=== PATIENT | male | born 1945 | race Caucasian/White ===

== ENCOUNTER 2018-04-12 12:01 | Emergency (ER) | payer MEDICARE, MEDICAID ==
[~2018-04-12] VITALS: Ht 182.9 cm; Wt 89.0 kg
[~2018-04-12 12:01] MED LIST: ALDACTONE25 MG PO; ALFUZOSIN HCL E10 MG PO; AMIODARONE200 MG PO; AMLODIPINE10 MG OR; ASPIRIN EC81 MG PO; BENAZEPRIL40 M1 OR; CLONAZEP ODT1 MG PO; CLONAZEPAM1 MG PO; CORDARONE/200 MG/TAB PO; CYANOCOBALAM1000 MCG IM; CYMBALTA60 MG PO; DEXILANT60 MG PO; DIGOXIN0.125 MG PO; DIOVAN160 MG PO; FERRAPLUS 90 PO; GLIMEPIRIDE2 MG PO; IBANDRONATE SO150 MG PO; JANUVIA100 MG OR; KLOR-CON-2525 MEQ PO; LASIX 40 MG TAB40 MG PO; LEVEMIR FLEXPEN SC; LEVEMIR SC; LORTAB 10 OR; LOVASTATIN40 M1 OR; LYRICA50 MG OR; MAGNESIUM-OX400 MG PO; METFORMIN1000 MG OR; METOPROLOL PO; METOPROLOL TART50 MG PO; MILLIPRED5 MG PO; NYSTATIN100000 M1 PO; OXYCODONE30 MG PO; OXYCONTIN40 MG PO; OXYCONTIN60 MG PO; PHENERGAN PO; PHENERGAN12.5 MG/TA PO; PRAVASTATIN SOD40 MG PO; PREDNISONE10 MG OR; SEROQUEL100 MG PO; TESTOST CYP100 MG/ML IM; TRAZODONE100 MG OR; TRAZODONE50 MG PO; TYLENOL325 MG PO; UROXATRAL10 MG PO; XARELTO10 MG PO; XARELTO20 MG PO; [UNRECOGNIZED DRUG - CODE] IM
[2018-04-12 14:29] VITALS: BP 138/70
[2018-04-12] MEDS ORDERED: OMNI-PAC300 MG PO (14:30)
[2018-04-12] MEDS ORDERED: BACTRIM DS1 TAB PO (14:30)
== END 2018-04-12 14:40 | disposition home or self-care (01) ==
LOC: ED 12:01
PROC: 0H9FXZZ Drainage of Right Hand Skin, External Approach (ICD-10-PCS; principal; 2018-04-12)
DX: L02.511 Cutaneous abscess of right hand (principal); L03.011 Cellulitis of right finger; I10 Essential (primary) hypertension

== ENCOUNTER 2018-07-22 19:53 | Emergency (ER) | payer MEDICARE, MEDICAID ==
[~2018-07-22] VITALS: Ht 182.9 cm; Wt 81.8 kg
[~2018-07-22 19:53] MED LIST changes: +BACTRIM DS1 TAB PO; +OMNI-PAC300 MG PO
[2018-07-22] MEDS ORDERED: LEVEMIR FL100 UNIT/M SC (20:31)
[2018-07-22] MEDS ORDERED: OMEPRAZOLE20 M2 PO (20:31)
[2018-07-22] MEDS ORDERED: TAMSULOSIN HCL0.4 MG PO (20:32)
[2018-07-22] MEDS ORDERED: CIPROFLOXACIN250 MG PO (20:34)
[2018-07-22 20:35] LABS: HEMATOCRIT 38.7 % (39.0-50.0); HEMOGLOBIN 12.3 g/dl (14.0-18.0); IMMATURE GRANULOCYTES 0.6 % (0.0-5.0); MEAN CELL VOLUME 93.7 fL CALC (80.0-100.0); MEAN CORPUSCULAR HGB 29.8 pG CALC (26.0-32.0); MEAN CORPUSCULAR HGB CONC 31.8 g/L CALC (32.0-36.0); NEUT# 9.05 thou/uL (1.82-7.42); RED BLOOD COUNT 4.13 mill/uL (4.70-6.10); RED CELL DISTRI WIDTH 18.1 % (11.5-15.5)
[2018-07-22] MEDS ORDERED: VITAMIN C500 M6 PO (20:36)
[2018-07-22] MEDS ORDERED: ALFUZOSIN HCL E10 MG PO (20:36)
[2018-07-22 20:37] LABS: URINE BILIRUBIN - DIPSTICK NEGATIVE (NEGATIVE); URINE BLOOD DIPSTICK NEGATIVE (NEGATIVE); URINE COLOR YELLOW; URINE GLUCOSE - DIPSTICK NEGATIVE (NEGATIVE); URINE KETONE NEGATIVE (NEGATIVE); URINE LEUK ESTERASE NEGATIVE (NEGATIVE); URINE NITRITE - DIPSTICK NEGATIVE (Negative); URINE PROTEIN - DIPSTICK NEGATIVE (NEG-TRACE); URINE UROBILINOGEN - DIPSTICK 0.2 E.U./dL (0.2)
[2018-07-22] MEDS ORDERED: BONIVA150 M1 PO (20:37)
[2018-07-22] MEDS ORDERED: DONEPEZIL5 MG PO (20:37)
[2018-07-22 20:38] LABS: URINE CLARITY CLEAR
[2018-07-22] MEDS ORDERED: KLONOPIN1 MG PO (20:38)
[2018-07-22] MEDS ORDERED: FUROSEMIDE40 MG PO (20:38)
[2018-07-22] MEDS ORDERED: LYRICA50 MG PO (20:39)
[2018-07-22] MEDS ORDERED: REGLAN10 MG PO (20:39)
[2018-07-22] MEDS ORDERED: LOPRESSOR25 M1 PO (20:40)
[2018-07-22] MEDS ORDERED: OXYCONTIN40 MG PO (20:40)
[2018-07-22] MEDS ORDERED: K-DUR/KLOR-CON20 MEQ PO (20:41)
[2018-07-22] MEDS ORDERED: PRAVASTATIN40 MG PO (20:41)
[2018-07-22] MEDS ORDERED: PREDNISONE10 MG PO (20:41)
[2018-07-22] MEDS ORDERED: TRAZODONE50 MG PO (20:42)
[2018-07-22 20:47] LABS: ALBUMIN 3.7 g/dL (3.2-5.0); BILIRUBIN, TOTAL 0.8 mg/dL (0.0-1.4); CREATININE 1.5 mg/dL (0.7-1.3); POTASSIUM 4.7 mmol/l (3.5-5.1)
[2018-07-22 22:48] VITALS: BP 131/73
== END 2018-07-22 22:48 | disposition short-term general hospital (02) ==
LOC: ED 19:53
PROVIDERS: Emergency Medicine
DX: R79.89 Other specified abnormal findings of blood chemistry (principal); T68.XXXA Hypothermia, initial encounter; E11.649 Type 2 diabetes mellitus with hypoglycemia without coma; Z79.4 Long term (current) use of insulin; R41.82 Altered mental status, unspecified; R00.1 Bradycardia, unspecified; R07.9 Chest pain, unspecified; Z91.81 History of falling; I10 Essential (primary) hypertension

== ENCOUNTER 2018-12-17 10:09 | Emergency (ER) | payer MEDICARE, MEDICAID ==
[~2018-12-17] VITALS: Ht 182.9 cm; Wt 98.0 kg
[~2018-12-17 10:09] MED LIST changes: +BONIVA150 M1 PO; +CIPROFLOXACIN250 MG PO; +DONEPEZIL5 MG PO; +FUROSEMIDE40 MG PO; +K-DUR/KLOR-CON20 MEQ PO; +KLONOPIN1 MG PO; +LEVEMIR FL100 UNIT/M SC; +LOPRESSOR25 M1 PO; +LYRICA50 MG PO; +OMEPRAZOLE20 M2 PO; +PRAVASTATIN40 MG PO; +PREDNISONE10 MG PO; +REGLAN10 MG PO; +TAMSULOSIN HCL0.4 MG PO; +VITAMIN C500 M6 PO
[2018-12-17] MEDS ORDERED: AMLODIPINE5 MG PO (11:00)
[2018-12-17 11:01] LABS: HEMATOCRIT 36.3 % (39.0-50.0); HEMOGLOBIN 11.6 g/dl (14.0-18.0); IMMATURE GRANULOCYTES 1.1 % (0.0-5.0); MEAN CORPUSCULAR HGB 29.1 pG CALC (26.0-32.0); NEUT# 18.82 thou/uL (1.82-7.42); RED BLOOD COUNT 3.99 mill/uL (4.70-6.10); RED CELL DISTRI WIDTH 18.6 % (11.5-15.5)
[2018-12-17] MEDS ORDERED: BUMETANIDE1 MG PO (11:03)
[2018-12-17] MEDS ORDERED: HYDRALAZINE100 MG PO (11:04)
[2018-12-17] MEDS ORDERED: NAMENDA10 MG PO (11:06)
[2018-12-17 11:40] LABS: POTASSIUM 4.5 mmol/l (3.5-5.1)
[2018-12-17 11:49] LABS: CREATININE 5.3 mg/dL (0.7-1.3)
[2018-12-17 13:10] VITALS: BP 108/64
== END 2018-12-17 13:10 | disposition short-term general hospital (02) ==
LOC: ED 10:09
PROVIDERS: Family Medicine
PROC: 05HM33Z Insertion of Infusion Device into Right Internal Jugular Vein, Percutaneous Approach (ICD-10-PCS; principal; 2018-12-17)
PROC: 0BH17EZ Insertion of Endotracheal Airway into Trachea, Via Natural or Artificial Opening (ICD-10-PCS; 2018-12-17)
PROC: 0T9B70Z Drainage of Bladder with Drainage Device, Via Natural or Artificial Opening (ICD-10-PCS; 2018-12-17)
DX: I50.9 Heart failure, unspecified (principal); R06.03 Acute respiratory distress; J18.9 Pneumonia, unspecified organism; R06.02 Shortness of breath; Y92.009 Unspecified place in unspecified non-institutional (private) residence as the place of occurrence of the external cause; E11.9 Type 2 diabetes mellitus without complications; Z79.4 Long term (current) use of insulin

== ENCOUNTER 2019-01-14 12:24 | Emergency (ER) | payer MEDICARE, MEDICAID ==
[~2019-01-14] VITALS: Ht 182.9 cm; Wt 90.0 kg
[~2019-01-14 12:24] MED LIST changes: +AMLODIPINE5 MG PO; +BUMETANIDE1 MG PO; +HYDRALAZINE100 MG PO; +NAMENDA10 MG PO
[2019-01-14] MEDS ORDERED: TYLENOL # 31 TA1 PO (13:39)
[2019-01-14 14:00] VITALS: BP 134/65
== END 2019-01-14 14:00 | disposition home or self-care (01) ==
LOC: ED 12:24
DX: S43.402A Unspecified sprain of left shoulder joint, initial encounter (principal); I10 Essential (primary) hypertension; E11.40 Type 2 diabetes mellitus with diabetic neuropathy, unspecified; W19.XXXA Unspecified fall, initial encounter